=== PATIENT | female | born 1975 | race Caucasian/White ===

== ENCOUNTER 2017-05-09 14:24 | Emergency (ER) | payer SELFPAY ==
[~2017-05-09] VITALS: Ht 162.6 cm; Wt 72.6 kg
[~2017-05-09 14:24] MED LIST: DOXYCYCLINE HY100 MG PO; FLUVOXAMINE MA100 MG PO; LUVOX CR100 MG PO; METROGEL55 GM TP; REGLAN10 MG PO
== END 2017-05-09 14:50 | disposition home or self-care (01) ==
LOC: ED 14:24
DX: Z00.8 Encounter for other general examination (principal)

== ENCOUNTER 2017-05-13 23:40 | Emergency (ER) | payer SELFPAY ==
[~2017-05-13] VITALS: Ht 162.6 cm; Wt 78.0 kg
== END 2017-05-14 01:25 | disposition home or self-care (01) ==
LOC: ED 23:40
DX: G43.909 Migraine, unspecified, not intractable, without status migrainosus (principal); F41.9 Anxiety disorder, unspecified; F17.200 Nicotine dependence, unspecified, uncomplicated; Z90.49 Acquired absence of other specified parts of digestive tract; Z98.890 Other specified postprocedural states; Z88.1 Allergy status to other antibiotic agents; Z88.0 Allergy status to penicillin; Z88.8 Allergy status to other drugs, medicaments and biological substances; Z79.899 Other long term (current) drug therapy
CPT/HCPCS: 96361; 96374; 96375; 99282; J1200; J1885; J2765; J7030

== ENCOUNTER 2018-05-06 09:59 | Emergency (ER) | payer MEDICAID ==
[~2018-05-06] VITALS: Ht 162.6 cm; Wt 78.0 kg
[2018-05-06] MEDS ORDERED: FLUVOXAMINE MA100 M1 PO (10:25)
== END 2018-05-06 10:39 | disposition home or self-care (01) ==
LOC: ED 09:59
DX: Z76.0 Encounter for issue of repeat prescription (principal); F17.200 Nicotine dependence, unspecified, uncomplicated; Z88.1 Allergy status to other antibiotic agents; Z88.0 Allergy status to penicillin; Z88.8 Allergy status to other drugs, medicaments and biological substances; Z79.899 Other long term (current) drug therapy
CPT/HCPCS: 99281

== ENCOUNTER 2018-12-12 09:17 | Emergency (ER) | payer OTHER ==
[~2018-12-12] VITALS: Ht 162.6 cm; Wt 78.0 kg
[~2018-12-12 09:17] MED LIST changes: +FLUVOXAMINE MA100 M1 PO
--- OUTSIDE RECORDS SUMMARY | 2018-12-12 09:22 | XMS ---
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 Lemuel has no Care Guidelines for this patient. Care History Medical/Surgical 05/23/2018 [facility] - CHW RECEIVED- ED PHYSICIAN CONSULT- TO HELP PATIENT FIND A PCP. - PATIENT JUST APPLIED FOR MEDICAID BENEFITS. - CHW CALLED PATIENT 2X AND LEFT A VOICEMAIL. - SENT PATIENT NO PCP LETTER. - IF PATIENT IS SEEN IN THE ED PLEASE CONTACT [facility]W -[facility] [phone] DURING BUSINESS HOURS AND CHW WILL TRY TO MAKE CONTACT WITH PATIENT IN THE ED IF AVAILABLE. E.D. VISIT COUNT (12 MO.) 2 [facility] TOTAL 2 NOTE: Visits indicate total known visits. 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
[2018-12-12] MEDS ORDERED: FLUVOXAMINE MA100 M1 PO (09:59)
== END 2018-12-12 10:05 | disposition home or self-care (01) ==
LOC: ED 09:17
DX: J02.9 Acute pharyngitis, unspecified (principal); F17.200 Nicotine dependence, unspecified, uncomplicated; F41.9 Anxiety disorder, unspecified; Z90.49 Acquired absence of other specified parts of digestive tract; Z88.1 Allergy status to other antibiotic agents; Z88.0 Allergy status to penicillin; Z91.018 Allergy to other foods
CPT/HCPCS: 99282

== ENCOUNTER 2018-12-13 17:25 | Emergency (ER) | payer OTHER ==
[~2018-12-13] VITALS: Ht 162.6 cm; Wt 78.0 kg
--- OUTSIDE RECORDS SUMMARY | 2018-12-13 17:28 | XMS ---
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 - Has Care Guidelines - [facility] - 2 Visits in 30 Days CARE PROVIDERS There are no care providers on record at this time. Lemuel has no Care Guidelines for this patient. Care History Medical/Surgical 05/23/2018 [facility] - CHW RECEIVED- ED PHYSICIAN CONSULT- TO HELP PATIENT FIND A PCP. - PATIENT JUST APPLIED FOR MEDICAID BENEFITS. - CHW CALLED PATIENT 2X AND LEFT A VOICEMAIL. - SENT PATIENT NO PCP LETTER. - IF PATIENT IS SEEN IN THE ED PLEASE CONTACT CHW -[facility] [phone] DURING BUSINESS HOURS AND CHW WILL TRY TO MAKE CONTACT WITH PATIENT IN THE ED IF AVAILABLE. E.D. VISIT COUNT (12 MO.) 3 [facility] TOTAL 3 NOTE: Visits indicate total known visits. ED/UCC VISIT TRACKING (12 MO.) 12/13/2018 17:26 [facility] TYPE: Emergency COMPLAINT: - BACK PAIN/SORE THROAT 12/12/2018 09:20 [facility] TYPE: Emergency COMPLAINT: - SORE THROAT, HEADACHE, EAR PAIN 05/06/2018 10:00 [facility] TYPE: Emergency COMPLAINT: - MEDICATION REQUEST DIAGNOSES: - Other correction (current) drug therapy - Encounter for issue of repeat prescription - Allergy status to other drugs, medicaments and biological substances status - Allergy status to penicillin - Allergy status to other antibiotic agents status - Nicotine dependence, unspecified, uncomplicated INPATIENT VISIT TRACKING (12 MO.) No inpatient visits to display in this time frame [email or web address]
== END 2018-12-13 20:30 | disposition home or self-care (01) ==
LOC: ED 17:25
DX: B34.9 Viral infection, unspecified (principal); R31.9 Hematuria, unspecified; F41.9 Anxiety disorder, unspecified; F17.200 Nicotine dependence, unspecified, uncomplicated; Z90.49 Acquired absence of other specified parts of digestive tract; Z88.1 Allergy status to other antibiotic agents; Z88.0 Allergy status to penicillin; Z91.018 Allergy to other foods
CPT/HCPCS: 80053; 81001; 84703; 85025; 99283